=== PATIENT | female | born 1955 | race Hispanic/Latino ===

== ENCOUNTER 2016-10-07 19:02 | Emergency (ER) | payer OTHER ==
[2016-10-07 19:12] VITALS: BMI 28.2
--- NOTE | 2016-10-07 19:17 | ED PDOC ---
Arrival/HPI - General Time Seen by Provider: 10/07/16 19:04 Historian: Patient - History of Present Illness Narrative History of Present Illness (Text): 10/07/16 19:18 61 y/o female, pmh including GERD, nkda, last tetanus under 2 years ago, c/o fall on the face x 1 hour. Pt. stated that she was thinking when she was walking down the stair, fall on the rt. sided of the face, sustained the abrasion on the rt. sided facial region, no LOC, able to recall the whole event , no palpitation, no neck pain, no abdominal pain, no rash, no other medical or psychological complaints. Past Medical History - Provider Review Nursing Documentation Reviewed: Yes - Psychiatric Hx Substance Use: No - Surgical History Hx Eye Surgery: Yes Family/Social History - Physician Review Nursing Documentation Reviewed: Yes Family/Social History: Unknown Family HX Smoking Status: Never Smoked Hx Alcohol Use: No Hx Substance Use: No Allergies/Home Meds Allergies/Adverse Reactions: Allergies No Known Allergies Allergy (Verified 06/24/16 14:34) Review of Systems - Review of Systems Constitutional: absent: Fatigue, Fevers Eyes: absent: Vision Changes ENT: absent: Hearing Changes Respiratory: absent: Cough, Sputum Cardiovascular: absent: Chest Pain Gastrointestinal: absent: Abdominal Pain, Nausea, Vomiting Musculoskeletal: Myalgias. absent: Arthralgias, Back Pain, Neck Pain, Joint Swelling Skin: absent: Rash, Pruritis, Skin Lesions Neurological: absent: Headache, Dizziness, Focal Weakness, Gait Changes, Speech Changes, Facial Droop, Disequilibrium, Seizure Physical Exam Vital Signs Temp Pulse Resp BP Pulse Ox 10/07/16 19:21 98.5 F 72 18 156/90 H 98 - Systems Exam Head: Present: Atraumatic, Normocephalic, Other (Facial: visible less than 1cm superficial abrasion noted on the rt. lateral periorbital region, +ttp and swelling noted on the rt. zygomatic arch and rt. frontal forehead region. ) Pupils: Present: PERRL Extroacular Muscles: Present: EOMI Conjunctiva: Present: Normal Ears: Present: NORMAL TM, Normal Canal. No: Erythema Mouth: Present: Moist Mucous Membranes, Normal Lips, Normal Tounge, Normal Teeth. No: Drooling, Trismus Nose (External): Present: Atraumatic. No: Abrasion, Contusion, Laceration, Lesions Nose (Internal): Present: Normal Inspection, No Active Bleeding. No: Rhinorrhea , Septal Hematoma, Epistaxis Neck: Present: Normal Range of Motion, Trachea Midline. No: MIDLINE TENDERNESS , Paraspinal Tenderness Respiratory/Chest: Present: Clear to Auscultation, Good Air Exchange. No: Respiratory Distress, Accessory Muscle Use Cardiovascular: Present: Regular Rate and Rhythm, Normal S1, S2. No: Murmurs Abdomen: Present: Normal Bowel Sounds. No: Tenderness, Distention, Peritoneal Signs Back: Present: Normal Inspection Upper Extremity: Present: Normal Inspection. No: Cyanosis, Edema Lower Extremity: Present: Normal Inspection. No: Edema Neurological: Present: GCS=15, Speech Normal, Motor Func Grossly Intact, Gait Normal, Memory Normal Skin: Present: Warm, Dry, Normal Color. No: Rashes Psychiatric: Present: Alert, Oriented x 3, Normal Insight, Normal Concentration Medical Decision Making ED Course and Treatment: 10/07/16 19:09 -wound irrigate with normal saline, clean with betadine, bacitracin and gauze dressing -CT head and facial -OBserve and reassess 10/07/16 20:27 -CT head and facial show no acute findings. -Pt. feels better, no other medical or psychological complaints. -I will discharge her home. - RAD Interpretation Radiology Orders: 10/07/16 19:12 HEAD W/O CONTRAST [CT] Stat MAXILLOFACIAL W/O CONTRAST [CT] Stat CT Facial: IMPRESSION: No acute facial fracture. Right facial contusion. Right frontal scalp/ periorbital contusion. Thank you for allowing us to participate in the care of your patient. Dictated and Authenticated by: Kory García MD --------- CT Head: IMPRESSION: No acute intracranial findings. Right frontal scalp contusion. Right facial contusion. Thank you for allowing us to participate in the care of your patient. Dictated and Authenticated by: Kory García MD Art Gallery Director: Radiologist - Medication Orders Current Medication Orders: Discontinued Medications Tramadol/Acetaminophen (Ultracet 37.5/325 Mg) 2 tab PO STAT STA Stop: 10/07/16 19:16 Tramadol/Acetaminophen (Ultracet 37.5/325 Mg) Confirm Administered Dose 1 tab .ROUTE .STK-MED ONE Stop: 10/07/16 20:43 - PA / COFFEE GRINDER / Resident Statement MD/DO has reviewed & agrees with the documentation as recorded. Disposition/Present on Arrival - Present on Arrival Any Indicators Present on Arrival: No History of DVT/PE: No History of Uncontrolled Diabetes: No Urinary Catheter: No History of Decub. Ulcer: No History Surgical Site Infection Following: None - Disposition Have Diagnosis and Disposition been Completed?: Yes Diagnosis: Accidental fall, Contusion, Facial abrasion Disposition: HOME/ ROUTINE Disposition Time: 20:27 Patient Plan: Discharge Patient Problems: Current Active Problems Problem Status Onset Accidental fall Acute Contusion Acute Facial abrasion Acute Condition: IMPROVED Additional Instructions: Discharge home with tylenol, bacitracin ointment, ice compression, clean the wound twice daily with soap and water, follow up with your own pmd within 2 days , return to the ER for any new or worsening signs or symptoms. Prescriptions: Acetaminophen [Tylenol 325mg tab] 2 tab PO QID PRN #30 tab PRN Reason: Other Bacitracin Ointment [Bacitracin] 1 appful TOP BID #15 g Referrals: [facility] [place] - Follow up with primary Forms: WORK NOTE
[2016-10-07 19:22] VITALS: BP 156/90; PULSE 72; RESP 18; TEMP 98.5; O2SAT 98
[2016-10-07] MEDS ORDERED: TraMADol/Apap 37.5/325 mg Tab ONE (20:42)
[2016-10-07] MEDS: TraMADol/Apap 37.5/325 mg Tab PO STA ×2 (20:45→20:46)
--- NOTE | 2016-10-08 10:53 | CT ---
PROCEDURE: CT HEAD WITHOUT CONTRAST. HISTORY: Rt. frontal forehead injury COMPARISON: 06/24/2016. TECHNIQUE: Axial computed tomography images were obtained through the head/brain without intravenous contrast. Radiation dose: Total exam DLP = 725.84 mGy-cm. This CT exam was performed using one or more of the following dose reduction techniques: Automated exposure control, adjustment of the mA and/or kV according to patient size, and/or use of iterative reconstruction technique. FINDINGS: HEMORRHAGE: No intracranial hemorrhage. BRAIN: No mass effect or edema. No atrophy or chronic microvascular ischemic changes. VENTRICLES: No significant interval change compared to the prior examination(s). . Incidental finding(s): Multiple choroid plexus cysts partially calcified without evidence of hydrocephalus or other pathologic process. CALVARIUM: Unremarkable. Soft tissue injury, contusion lateral aspect of the apex of the right orbit. No underlying orbital right more frontal bone abnormalities. PARANASAL SINUSES: Unremarkable as visualized. No significant inflammatory changes. MASTOID AIR CELLS: Unremarkable as visualized. No inflammatory changes. OTHER FINDINGS: None. IMPRESSION: No acute intracranial abnormalities. No significant findings to account for the clinical presentation. Extracranial soft tissue contusion right supraorbital/facial region. Otherwise no interval change compared to prior studies. Concordant results (preliminary interpretation) provided by [employer]. Procedure Completed: 19:28 Preliminary ([facility]) Report: Dictated and Authenticated: 20:30 Final Interpretation: 07:51. October 07, 2016.
--- NOTE | 2016-10-08 10:53 | CT ---
PROCEDURE: CT MAXILLOFACIAL BONES WITHOUT CONTRAST HISTORY: rt. zygomatic swelling s/p fall COMPARISON: None TECHNIQUE: Contiguous axial CT images of the maxillofacial bones were obtained. Coronal and sagittal reformats were generated. Radiation dose: Total exam DLP = 854.51 mGy-cm. This CT exam was performed using one or more of the following dose reduction techniques: Automated exposure control, adjustment of the mA and/or kV according to patient size, and/or use of iterative reconstruction technique. FINDINGS: NASAL BONES: Unremarkable. ORBITS: Unremarkable. PARANASAL SINUSES/ MASTOIDS: Clear. MAXILLA: Unremarkable. MANDIBLE/ TEMPOROMANDIBULAR JOINTS: Unremarkable. SKULL BASE: Unremarkable. TEMPORAL BONES: Middle ears and mastoid grossly unremarkable. OTHER FINDINGS: Right periorbital scalp contusion without calvarial, orbital/ocular abnormality. IMPRESSION: No calvarial or globe/retro Conal abnormalities. Soft tissue injury/ right facial contusion. Concordant results (preliminary interpretation) provided by [employer]. Procedure Completed: 19:32. Preliminary ([facility]) Report: Dictated and Authenticated: 20:21. Final Interpretation: 07:54. October 07, 2016.
== END 2016-10-07 21:00 | disposition home or self-care (01) ==
LOC: ED 19:02
DX: S00.83XA Contusion of other part of head, initial encounter (principal); W10.8XXA Fall (on) (from) other stairs and steps, initial encounter; Y93.89 Activity, other specified; Y92.89 Other specified places as the place of occurrence of the external cause